=== PATIENT | male | born 2000 | race Caucasian/White ===

== ENCOUNTER 2020-04-20 13:23 | Emergency (ER) | payer OTHER ==
[~2020-04-20] VITALS: Ht 170.2 cm; Wt 90.7 kg
[~2020-04-20 13:23] MED LIST: AMOX50SU PO; Amoxicillin500 MG PO; CODACEE120 PO; HYDACE7.5L PO; Motrin600 MG PO; PRED10 PO; SULF10OPSA OU; TRIA80TC TOP
[2020-04-20] MEDS ORDERED: SERT50 PO (13:49)
[2020-04-20] MEDS ORDERED: Prednisone20 MG PO (18:46)
== END 2020-04-20 19:13 | disposition home or self-care (01) ==
LOC: ER 13:23
DX: R22.0 Localized swelling, mass and lump, head (principal); T50.905A Adverse effect of unspecified drugs, medicaments and biological substances, initial encounter; F32.9 Major depressive disorder, single episode, unspecified; Z79.899 Other long term (current) drug therapy
CPT/HCPCS: 36415; 96374; 96375; 99283-25; J1200; J2930

== ENCOUNTER → 2021-06-23 | Outpatient (CLI) | payer OTHER ==
[~2021-06-23] MED LIST changes: +Prednisone20 MG PO; +SERT50 PO
== END | disposition home or self-care (01) ==
LOC: LAB SHORT 08:01
DX: D22.4 Melanocytic nevi of scalp and neck (principal)
CPT/HCPCS: 88305

== ENCOUNTER → 2023-07-03 | Outpatient (CLI) | payer OTHER ==
[~2023-07-03] MED LIST changes: +ONDA4ODT MM; +[UNRECOGNIZED DRUG - OTHER]
[2023-07-03 12:08] LABS: BASOPHILS ABSOLUTE AUTO 0.04 K/mm3 (0.00-0.23); BASOPHILS PERCENT AUTO 1 % (0-2); EOSINOPHILS ABSOLUTE AUTO 0.37 K/mm3 (0.00-0.68); EOSINOPHILS PERCENT AUTO 7 % (0-6); Hematocrit 44.5 % (37.0-53.0); Hemoglobin 15.6 g/dL (13.5-17.5); IMMATURE GRAN ABSOLUTE AUTO 0.01 K/mm3 (0.00-0.10); IMMATURE GRAN PERCENT AUTO 0 % (0-1); LYMPHOCYTES ABSOLUTE AUTO 1.23 K/mm3 (0.84-5.20); LYMPHOCYTES PERCENT AUTO 23 % (21-46); MONOCYTES ABSOLUTE AUTO 0.44 K/mm3 (0.16-1.47); MONOCYTES PERCENT AUTO 8 % (4-13); Mean Corpuscular HGB 29.5 pg (26.0-34.0); Mean Corpuscular HGB Conc 35.1 g/dL (31.5-36.5); Mean Corpuscular Volume 84 fL (80-100); Mean Platelet Volume 10.3 fL (9.1-12.4); NEUTROPHILS ABSOLUTE AUTO 3.21 K/mm3 (1.96-9.15); NEUTROPHILS PERCENT AUTO 61 % (41-73); Platelet Count 256 K/mm3 (150-400); RDW Coefficient Variation 12.4 % (11.7-14.2); RDW Standard Deviation 37.7 fL (35.1-46.3); Red Blood Cell Count 5.28 M/mm3 (4.30-5.90)
[2023-07-03 12:35] LABS: Albumin, Blood 4.3 g/dL (3.4-5.0); Albumin/Globulin Ratio 1.1 (0.8-1.8); Bilirubin, Total 0.4 mg/dL (0.1-1.0); Bun/Creatinine Ratio 15.3 (12.0-20.0); Calcium, Blood 9.4 mg/dL (8.5-10.1); Creatinine, Blood 0.78 mg/dL (0.60-1.20); Globulin, Blood 3.9 g/dL (2.2-4.0); Potassium, Blood 3.9 mmol/L (3.5-5.5); Total Protein, Blood 8.2 g/dL (6.4-8.2)
== END | disposition home or self-care (01) ==
LOC: LAB 11:09 → LAB SHORT 11:09
PROVIDERS: Family Medicine
DX: I10 Essential (primary) hypertension (principal)
CPT/HCPCS: 80053; 85025